=== PATIENT | female | born 1985 | race African-American/Black ===

== ENCOUNTER 2017-12-07 04:15 | Emergency (ER) | payer MEDICAID, OTHER ==
[~2017-12-07] VITALS: Ht 160 cm; Wt 72.6 kg
[~2017-12-07 04:15] MED LIST: CEPHALEXIN500 MG ORAL; CORTISONE14 GM TP; HYDROXYZINE HCL50 M1 PO; NKM; NORCO 5-325 TA1 EACH ORAL; PEPCID20 MG ORAL; TRAMADOL HCL50 MG ORAL; ZOFRAN ODT4 MG ORAL
[2017-12-07 04:32] VITALS: BP 125/88
--- NOTE | 2017-12-07 04:39 | Emergency Room Report ---
History of Present Illness General Chief Complaint: Upper Extremity Injury Source: Patient Present Illness HPI Is a 32-year-old female who is right-hand dominant. She presents with chief complaint of right finger pain. 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 She placed it into a shopping bag and the person grabbed a bag and get out of her hand. Her finger was inside the bag and again, her finger. This occurred a few hours ago. Initially he wasn't hurting as much but now is her to bend her fingers. No other injury. Pain is 7 out of 10. Worse with movement. Allergies: Coded Allergies: FLUTICASONE (Unverified Allergy, Mild, Itching, 02/23/14) SALMETEROL (Unverified Allergy, Mild, Itching, 02/23/14) Patient History Past Medical History: see triage record, old chart reviewed Past Surgical History: other Pertinent Family History: none Social History: Denies: smoking Last Menstrual Period: 2 weeks ago Now: No Immunizations: other Reviewed Nursing Documentation: PMH: Agreed; PSxH: Agreed Nursing Documentation-PMH Past Medical History: No History, Except For Hx Asthma: Yes Review of Systems Eye: Denies: eye pain, blurred vision ENT: Denies: ear pain, nose congestion, throat swelling Respiratory: Denies: cough, shortness of breath Cardiovascular: Denies: chest pain, palpitations Gastrointestinal: Denies: abdominal pain, diarrhea, nausea, vomiting Musculoskeletal: Reports: joint pain, joint swelling; Denies: back pain Skin: Denies: rash Neurological: Denies: headache, numbness Endocrine: Denies: increased thirst, increased urine Hematologic/Lymphatic: Denies: easy bruising All Other Systems: negative except mentioned in HPI Physical Exam Vital Signs Date Time Temp Pulse Resp B/P (MAP) Pulse Ox O2 Delivery O2 Flow Rate FiO2 12/07/17 04:20 98.4 78 16 125/88 97 Room Air 98.4 vitals normal Sp02 EP Interpretation: reviewed, normal General Appearance: well appearing, no apparent distress, alert Head: normocephalic, atraumatic Eyes: bilateral eye PERRL, bilateral eye EOMI ENT: hearing grossly normal, normal pharynx Neck: full range of motion, supple, no meningismus Respiratory: chest non-tender, lungs clear, normal breath sounds Cardiovascular #1: regular rate, rhythm, no murmur Gastrointestinal: normal bowel sounds, non tender, no mass, no organomegaly, no bruit, non-distended Musculoskeletal: back normal, gait/station normal, tender - Right ring finger: There is tenderness over the PIP joint. There is also swelling in that area. Tender to palpation to PIP and DIP joints. Decreased ROM. Capillary refill less than 2 seconds. No tenderness over the MCP joint. Neurologic: alert, oriented x3 Psychiatric: mood/affect normal Skin: warm/dry Procedures Splinting Splinting : Consent: Verbal Location: Rt 4th finger Pre-Made Type: metal Splint: finger Pre-Proc Neuro Vasc Exam: normal Post-Proc Neuro Vasc Exam: normal Patient Tolerated: Well Complications: None Medical Decision Making Diagnostic Impression: Primary Impression: Sprain of finger of right hand Qualified Codes: S63.634A - Sprain of interphalangeal joint of right ring finger, initial encounter Additional Impression: Fracture phalanges, hand Qualified Codes: S62.609A - Fracture of unspecified phalanx of unspecified finger, initial encounter for closed fracture ER Course Patient presents with a finger sprain and possible small avulsion fracture of the DIP joint. No evidence of dislocation. Patient splinted. We'll discharge home with workman's comp follow-up. Other X-Ray Diagnostic Results Other X-Ray Diagnostic Results : X-Ray ordered: x-rays right ring finger # of Views/Limited Vs Complete: 4 View Indication: Pain EP Interpretation: Yes Interpretation: no dislocation, no soft tissue swelling, other - a lotion fracture of distal phalanx Impression: Other - avulsion of DIP joint Electronically Signed by: Mp Trujillo MD Last Vital Signs Date Time Temp Pulse Resp B/P (MAP) Pulse Ox O2 Delivery O2 Flow Rate FiO2 12/07/17 04:32 98.4 78 16 125/88 97 Room Air 98.4 Status: improved Disposition: HOME, SELF-CARE Condition: Stable Additional Instructions: Follow-up with Workmen's Comp. doctor in one to 2 days. Return if symptom worsen. MP TRUJILLO M.D. Dec 07, 2017 04:38
[2017-12-07] MEDS ORDERED: Norco 5mg/325mg tab ORAL ONE (04:45)
[2017-12-07] MEDS ORDERED: IBUPROFEN600 MG ORAL (05:03)
[2017-12-07] MEDS ORDERED: HYDROCODON-ACE1 EA15 ORAL (05:03)
[2017-12-07 05:09] VITALS: BP 125/88
--- NOTE | 2017-12-07 05:29 | Diagnostic Imaging Report ---
EXAM: XR Right Finger(s), 2 or More Views CLINICAL HISTORY: TRAUMA TECHNIQUE: Frontal, lateral and oblique views of finger(s) of the right hand. COMPARISON: No relevant prior studies available. FINDINGS: Bones/joints: Unremarkable. No acute fracture. No dislocation. Soft tissues: Unremarkable. No radiopaque foreign body. IMPRESSION: No acute findings.
== END 2017-12-07 05:09 | disposition home or self-care (01) ==
LOC: EMR 05:00
DX: S63.634A Sprain of interphalangeal joint of right ring finger, initial encounter (principal); S62.609A Fracture of unspecified phalanx of unspecified finger, initial encounter for closed fracture; X50.9XXA Other and unspecified overexertion or strenuous movements or postures, initial encounter; Y92.512 Supermarket, store or market as the place of occurrence of the external cause; Y99.0 Civilian activity done for income or pay; J45.909 Unspecified asthma, uncomplicated
CPT/HCPCS: 29130; 99283

== ENCOUNTER 2020-06-01 11:16 | Emergency (ER) | payer MEDICAID, OTHER ==
[~2020-06-01] VITALS: Ht 160 cm; Wt 74.8 kg
[~2020-06-01 11:16] MED LIST changes: +HYDROCODON-ACE1 EA15 ORAL; +IBUPROFEN600 MG ORAL
--- NOTE | 2020-06-01 11:51 | NUR ---
came to er complaints of left knee pain x 2 days denies any injury . pain is worse when she bend her legs
[2020-06-01] MEDS ORDERED: NAPROXEN500 M2 ORAL (11:53)
[2020-06-01 11:58] VITALS: BP 120/80
--- NOTE | 2020-06-01 11:59 | NUR ---
ED Nurse Note: Pt cleared by health care Provider for discharge. DC instructions/prescription was given and explained to pt and verbalized understanding of teachings. All medical deviecs such as ID band removed. Pt is AAO x4, ambulatory and left with all personal belongings.
--- NOTE | 2020-06-01 12:04 | Emergency Room Report ---
History of Present Illness General Chief Complaint: Lower Extremity Injury Source: Patient Present Illness HPI Disclaimer: Please note that this report is being documented using [employer] technology. This can lead to erroneous entry secondary to incorrect interpretation by the dictating instrument. HPI: 34-year-old female presents for evaluation of swelling of the left knee. No trauma reported. Over the past few days she has noted swelling around the patella which makes it difficult to bend the knee due to pressure. Denies pain. Able to ambulate with a normal gait. Denies prior history of injury but did state that she had knee swelling like this in the past that improved after administration of naproxen. Denies fever or chills. Denies warmth or skin breakdown. Does not inject any medications. Denies vaginal bleeding, vaginal discharge or dysuria, conjunctivitis or other systemic symptoms. 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 EOMI. Resp: Normal work of breathing Skin: Intact. No abrasions, laceration or rash over the exposed skin MSK: Normal tone and bulk. Moving all extremities. No obvious deformity. Patella in anatomic position of the right knee. Mild pretibial edema. No tenderness. No warmth, no fluctuance. No overlying skin breakdown. No palpable mass or other abnormality in the posterior fossa. Full range of motion. Neuro: Awake and alert. Mentating appropriately Medical Decision Making Diagnostic Impression: Primary Impression: Knee swelling ER Course 34-year-old male presents for evaluation of atraumatic left knee swelling. This is happened to her in the past and improved with NSAIDs. Most consistent with a bursitis. Very little clinical concern for septic joint or septic bursitis at this time. Do not believe she requires arthrocentesis or imaging. Will start again on naproxen and have the knee wrapped in an Kevin wrap. Discussed she should follow up with orthopedic surgery and PMD and return with new or worsening symptoms. She understands and agrees with the treatment plan. Last Vital Signs Date Time Temp Pulse Resp B/P (MAP) Pulse Ox O2 Delivery O2 Flow Rate FiO2 06/01/20 11:58 98.1 18 120/80 98 Room Air 06/01/20 11:45 78 Disposition: HOME, SELF-CARE Condition: Stable Scripts Naproxen* (NAPROXEN*) 500 Mg Tablet 500 MG ORAL TWICE A WEEK, #60 TAB 0 Refills Prov: Carl Wilson MD 06/01/20 [facility] 24 hour /7 days a week by Appointment Only [address] [facility] [address] [facility] [address] Patient Instructions: Prepatellar Bursitis With [facility] Additional Instructions: Please follow-up with your primary care doctor in the next 1 to 3 days to discuss this emergency department visit and for reevaluation. If you have any new or worsening symptoms please return to the emergency department for reevaluation. Please note that this report is being documented using [employer] technology. This can lead to erroneous entry secondary to incorrect interpretation by the dictating instrument. Carl Wilson MD Jun 01, 2020 12:04
== END 2020-06-01 11:58 | disposition home or self-care (01) ==
LOC: EMR 11:50
DX: M25.462 Effusion, left knee (principal); J45.909 Unspecified asthma, uncomplicated; Z88.8 Allergy status to other drugs, medicaments and biological substances
CPT/HCPCS: 99282